=== PATIENT | female | born 1975 | race Caucasian/White ===

== ENCOUNTER 2018-11-29 14:17 | Outpatient (CLI) | payer MEDICAID, SELFPAY ==
[2018-11-30 13:29] LABS: Prolactin 67.6 ng/ml
== END 2018-11-29 14:37 ==
PROVIDERS: PCP Internal Medicine; Visit Provider Nurse Practitioner Family
DX: F10.99 Alcohol use, unspecified with unspecified alcohol-induced disorder (principal); Z79.899 Other long term (current) drug therapy; F33.2 Major depressive disorder, recurrent severe without psychotic features
CPT/HCPCS: 36415; 84146

== ENCOUNTER 2019-01-28 09:00 | Outpatient (CLI) | payer MEDICAID, SELFPAY ==
--- NOTE | 2019-01-28 16:09 | DI.US_ITS ---
SYMPTOM/DIAGNOSIS: PALPABLE MASS, ROUND QUARTER SIZE, DEFINED MARGINS, RT INNER UPPER THIGH.R 22.40 RIGHT UPPER THIGH SOFT TISSUE ULTRASOUND: Soft tissue evaluation of the right upper thigh was performed in the area of palpable abnormality in the upper medial thigh. There is a 0.7 by 0.8 by 1.3 cm., echogenic solid mass present. There is a question of some internal blood flow versus motion artifact. There is a 0.3 by 0.2 by 0.3 cm. simple cyst in the upper medial thigh inferior to the solid echogenic mass. IMPRESSION: 1. 1.3 cm. solid echogenic, round subcutaneous mass in the upper thigh. Sonographically this may represent benign lesion such as a lipoma. Follow up as clinically appropriate. 2. 0.3 cm. subcutaneous cyst in the right upper medial thigh.
== END 2019-01-28 09:20 ==
PROVIDERS: PCP Internal Medicine; Visit Provider Nurse Practitioner Adult Health
DX: R22.41 Localized swelling, mass and lump, right lower limb (principal); M79.89 Other specified soft tissue disorders; L72.8 Other follicular cysts of the skin and subcutaneous tissue; D17.39 Benign lipomatous neoplasm of skin and subcutaneous tissue of other sites
CPT/HCPCS: 76881

== ENCOUNTER 2019-03-05 09:26 | Outpatient (CLI) | payer MEDICAID, SELFPAY ==
[2019-03-05 11:20] LABS: ALT 65 U/L (12-78); AST 37 U/L (15-37); Albumin 3.7 g/dL (3.4-5.0); Alkaline Phosphatase 89 U/L (46-116); Anion Gap 8.8 mmol/L (3-11); BUN 14 mg/dL (7-18); Bilirubin, Total 0.3 mg/dL (0.2-1.0); CO2 27.2 mmol/L (21.0-32.0); CREATININE 0.75 mg/dL (0.55-1.02); Calcium 9.1 mg/dL (8.5-10.1); Chloride 102 mmol/L (98-107); Glucose 94 mg/dL (70-100); Potassium 4.6 mmol/L (3.5-5.1); Sodium 138 mmol/L (136-145); TSH 3.56 uIU/mL (0.358-3.74)
[2019-03-05 11:32] LABS: Cholesterol 259 mg/dL (50-200); HDL Cholesterol 56 mg/dL (40-60); LDL CHOLESTEROL 171 mg/dL (<100); Triglyceride 210 mg/dL (30-150)
[2019-03-10 17:29] LABS: T3, Total 123 ng/dl (97-169)
== END 2019-03-05 09:46 ==
PROVIDERS: PCP Nurse Practitioner Family; Visit Provider Nurse Practitioner Family
DX: F33.3 Major depressive disorder, recurrent, severe with psychotic symptoms (principal); Z79.899 Other long term (current) drug therapy; R63.5 Abnormal weight gain; E04.9 Nontoxic goiter, unspecified; M79.9 Soft tissue disorder, unspecified
CPT/HCPCS: 36415; 80053; 80061; 83721; 84439; 84443

== ENCOUNTER 2019-03-05 10:19 | Day surgery (SDC) | payer MEDICAID, SELFPAY ==
[2019-03-05 11:02] VITALS: BP 130/61; PULSE 69; RESP 16; TEMP 36.2; O2SAT 99
[2019-03-05] MEDS: Lidocaine 1% Multi-Dose 50 ML VIAL (13:43)
--- NOTE | 2019-03-05 13:47 | SOFT_PTH ---
PATIENT: Esha Gomez LOC: [facility] U#:[id number] AGE/SX: 44/F ROOM: RE03/05/[address]: Keila Dunn : 1975 BED: DIS: 03/05/2019 SPEC #: [id number] RECD: 03/05/19 17:16 STATUS: KAILEY REQ #: [id number] NATHANIEL: 03/05/19 13:[address]: Keila Dunn DEPT: Surgical Specimen RECD BY: Ly Hyde ENTERED: 03/05/19 17:17 SP TYPE: SOFT OTHR DR: Linda Dietrich Tissues: 1 - SOFT TISSUE-CYST(NOT LIPOMA) Procedures: GROSS AND MICRO LEVEL 4 Comments: [id number]
--- NOTE | 2019-03-05 14:09 | DSE_ITS ---
Date of service: 03/05/19 Time of Service: 14:08 DS: Diagnosis Discharge Diagnosis (1) Soft tissue lesion: Status: Acute Discharge Plan Disposition Patient Disposition: HOME Condition: Good Discharge Details Reason For Visit: lesion removal Attending Provider: Keila Dunn Primary Care Provider: Linda Dietrich Home Meds and New Rx's Prescriptions: New ibuprofen 800 mg tablet 800 mg PO TID PRN (Reason: pain) Qty: 30 RF: 0 Continued sertraline 100 mg tablet 150 mg PO DAILY RF: 0 propranolol 10 MG tablet 10 mg PO DAILY RF: 0 lorazepam [Ativan] 0.5 mg Tablet 0.5 mg PO PRNRF: 0 Vraylar 1.5 mg Capsule 1.5 mg PO HS RF: 0 Discontinued ibuprofen [Advil] 200 MG tablet 1 tab PO PRN PRNRF: 0 Discharge Instructions Additional Instructions: Caring for Your Incision You?ll need to help care for your incision after surgery and certain medical procedures. To close an incision, your healthcare provider used stitches (sutures), special strips of surgical tape called Steri-Strips, surgical chata, or surgical skin glue. Follow the tips on this sheet to help stop bleeding, speed healing, and prevent infection of your incision. Pain Control Use ice! Ice keeps the swelling down and swelling is what causes pain. Never apply ice directly to the skin. Wrap it in a towel or cloth. Apply ice 20 minutes on and 20 minutes off for pain control. Use as needed. Take tylenol 325 mg by mouth with food every 4 hours as needed for pain. Or ibuprofen 400 mg by mouth with food every 4 hours as needed for pain. Do not take tylenol if you have a history of heavy drinking , hepatits C or liver problems. Do not take ibuprofen if you have a history of stomach ulcers/problems, bleeding problem or kidney issues. Types of incision closures ? Surgical stitches (sutures) are placed by sewing the edges of an incision together with surgical thread. Sutures are either absorbable or non-absorbable. Absorbable sutures break down in the body over time. Non-absorbable sutures need to be removed. ? Home care ? Always wash your hands before touching your incision. ? Keep the incision clean, dry, and out of water, keep the incision out of water. ? Do not to pick at the scabs. Scabs help protect the wound. ? You can take a shower in 24 hours and wash the incision with soap and water. Pat dry/don?t scrub. It?s OK to wash around the incision. But don?t spray water directly on it. ? Pat stitches dry if they get wet. Don't rub. ? Check the incision site daily for pain, redness, drainage, swelling, or separation of the incision edges. ? If there is a bandage (dressing) over the incision, change this every 24 hours as instructed by your provider. Using clean hands change the dressing as directed by your healthcare provider. Always wash your hands before changing your dressing. ? Make sure any clothing that touches the incision is loose-fitting. This will prevent rubbing. If the incision is on the head, keep your child from wearing caps or other head coverings. These may rub against the incision. ? Try to avoid from rough play, contact sports, or physical activities for two weeks. This can put you at risk of opening the incision. ? Make sure you avoid doing things that could cause dirt or sweat to get in or on the incision. As your incision heals, the skin may appear pink or red. It may also feel slightly bumpy or raised. This is called a healing ridge. Over time, the color should fade and the raised skin will become less noticeable. Care for specific closures : ? Sutures or chata. Once you no longer need to keep these dry, clean the incision or wound daily, generally after the first 24 hours. First remove the bandage using clean hands. Then wash the area gently with soap and warm water. Use a wet cotton swab to loosen and remove any blood or crust that forms. After cleaning, put a thin layer of antibiotic ointment on. Then put on a new bandage. Follow-up care Tyler or sutures generally need to be removed in 7-10 days. 5 days for the face. Be sure to return for suture or staple removal as directed. If dissolving stitches were used in your mouth, these will not need to be removed. They should fall out or dissolve on their own. If tape closures were used, remove them yourself when your healthcare provider tells you to if they have not fallen off on their own. When to seek medical care Call your healthcare provider right away if you have any of these: ? More pain, redness, swelling, bleeding, or foul-smelling discharge around the incision area ? Fever of 101?F (38.3?C) or higher, or as directed by your child's healthcare provider ? Shaking chills ? Vomiting or nausea that doesn?t go away ? Numbness, coldness, or tingling around the incision area, or changes in skin color ? Opening of the sutures or wound Stitches or chata come apart or fall out or surgical tape falls off before 7 days, or as directed by your healthcare provider Stand Alone Forms: Esperanza Seaman (DSU) Activity:: Activity as Tolerated Remove Dressings/Wound Care:: 24 hours Shower/Bathe:: 24 hours Diet:: As Tolerated Discharge Orders Discharge Orders: Discharge Order (Routine); Ordered 03/05/19 Ordered By: Keila Dunn Discharge Data Discharge Date/Time-TO BE ENTERED AT DEPARTURE: 03/05/19 14:31 DS: Data Vitals/I&O Vitals and I&O: Vital Signs Temperature 36.2 C L 03/05/19 11:02 Pulse 69 03/05/19 11:02 Pulse Rhythm Irregular 03/05/19 11:02 Respiratory Rate 16 03/05/19 11:02 Respiratory Depth Normal 03/05/19 11:02 Blood Pressure 130/61 03/05/19 11:02 Pulse Oximetry 99 03/05/19 11:02 Oxygen Delivery Method Room Air 03/05/19 11:02 Oxygen Flow Rate 0 03/05/19 11:02 Pain Level 0 03/05/19 11:02 Intake & Output 03/04/19 03/05/19 03/05/19 23:59 11:59 23:59 Weight 101.8 kg [facility] Medical History Soft tissue lesion (Acute) External hemorrhoids without complication (Acute 12/25/13) Irregular periods (Acute 10/24/12) ALEXANDER III (vulvar intraepithelial neoplasia III) (Acute 12/25/13) Foot pain, left (Acute) Skin lesion of right leg (Acute) Abnormal Pap History Depression Schizoaffective disorder Seratonin Syndrome ALEXANDER Grade 3 Surgical History Bunionectomy R Cervical Procedure Dental implant R labia majora ALEXANDER Grade 3 excision Tonsillectomy Wide local excision of ALEXANDER III Social History Smoking/Tobacco Use Status: Current-Occasional Tobacco Type: cigarettes Drug use: Rarely Substance use type: marijuana Details: alcohol: t-1, couple beers Do you feel safe at home: Yes Do you feel safe in your relationship?: Yes
--- NOTE | 2019-03-06 07:42 | ROE_ITS ---
REPORT OF OPERATIVE PROCEDURE DATE OF PROCEDURE March 05, 2019 PREOPERATIVE DIAGNOSIS Soft tissue lesion right inner upper thigh. POSTOPERATIVE DIAGNOSIS Soft tissue lesion right inner upper thigh. PROCEDURE Excision Soft tissue lesion right inner upper thigh. Lesion is 0.5 cm in size. SURGEON Keila Dunn D.O. ANESTHESIA Local ESTIMATED BLOOD LOSS Less than 2 cc COMPLICATIONS The patient tolerated the procedure well without complications. INDICATIONS The patient is a 44-year-old female who was here today for lesion removal. The reason for removal secondary to pain. Informed consent was obtained. Explained the risks and benefits of the procedure including, not limited to bleeding, infection, scarring blood loss, recurrence, the need for excision of more tissue. The patient was marked in Preop. DESCRIPTION OF PROCEDURE The patient was brought back to the Operative Suite. Timeout is performed. The patient was prepped and draped in a sterile fashion using ChloraPrep scrub solution. The area was infiltrated with 20 cc of mixed 1% lidocaine with epi and 0.25% Marcaine A 0.5-cm incision was made over the skin lesion with the #10-blade. The lesion was then dissected out. It appeared to be fatty necrosis. It was irrigated and pressure was held. There was no bleeding noted. It was closed with three stitches of #3-0 Nylon and a compression dressing was applied. The patient tolerated the procedure without complication and she was transferred to Recovery Room in stable condition. the lesion located b/l this on US was not palpated at time of removal of the first lesions. I think it was this upper lesion that was causing her pain. CC: Linda Dietrich M.D.
== END 2019-03-05 14:31 | disposition home or self-care (01) ==
PROVIDERS: PCP Family Medicine; Visit Provider Surgery
PROC: (CPT 11400; principal; 2019-03-05 11:30)
DX: M79.651 Pain in right thigh (principal); D17.23 Benign lipomatous neoplasm of skin and subcutaneous tissue of right leg; F33.3 Major depressive disorder, recurrent, severe with psychotic symptoms; Z79.899 Other long term (current) drug therapy; R63.5 Abnormal weight gain; E04.9 Nontoxic goiter, unspecified
CPT/HCPCS: 11400; 36415; 80053; 80061; 83721; 88305; NC; 84439; 84443; 84480; 88304

== ENCOUNTER 2019-07-15 09:18 | Emergency (ER) | payer MEDICAID, SELFPAY ==
[2019-07-15] VITALS (14 sets, daily range): BP systolic 131–153; BP diastolic 81–92; PULSE 77–92; RESP 9–24; TEMP 36–36.9; O2SAT 95–98
--- NOTE | 2019-07-15 09:27 | W.ED.GENAD ---
Discharge Plan Disposition Patient Disposition: HOME Condition: Improving Discharge Details Chief Complaint: Chest Pain Clinical Impression: Gastritis Primary Care Provider: Linda Dietrich ED Provider: Haresh Viveros Home Meds and New Rx's Prescriptions: New pantoprazole [Protonix] 20 mg tablet,delayed release (DR/EC) 20 mg PO DAILY Qty: 14 RF: 0 sucralfate [Carafate] 100 mg/mL suspension 10 ml PO TID Qty: 420 RF: 1 Continued sertraline 100 mg tablet 150 mg PO DAILY RF: 0 propranolol 10 MG tablet 10 mg PO DAILY RF: 0 Vraylar 1.5 mg Capsule 1.5 mg PO HS RF: 0 ibuprofen 800 mg tablet 800 mg PO TID PRN (Reason: pain) Qty: 30 RF: 0 Discharge Instructions Instructions: Gastritis (ED) Additional Instructions: Avoid spicy, fatty, fried foods. Minimize eating 2 to 3 hours prior to bedtime. Take medications as prescribed. Return for any acute concern. Follow-up with primary doctor if not improving in 5 to 7 days time. Medical Decision Making 44-year-old female presents from home complaining of 3 days of left-sided chest and abdomen discomfort that is worsened with eating and began after eating a greasy sandwich. She is anxious as her father of an GA 20 years ago. She has a blood pressure 153/92, otherwise normal vital signs. She is minimally tender left upper quadrant on exam. Differential diagnosis includes gastritis, GERD, must exclude ACS. Patient given GI cocktail, PPI, referred for laboratory testing and chest x-ray. She is improved with PPI and GI cocktail. Pain after 2 days of persistent discomfort is improving. Her troponin is negative and do not feel given the duration of the discomfort that she requires repeat troponin. Chest x-ray was unremarkable. We will place on Carafate and PPI for 2 weeks. She understands homecare, dietary precautions, as well as follow-up/return instructions. She is stable and improved. Lab Data Lab results reviewed: Yes I reviewed the patient's lab results. Labs: Laboratory Results - last 24 hr 07/15/19 07/15/19 09:30 09:30 WBC 8.49 RBC 4.22 Hgb 14.7 Hct 42.0 MCV 99.5 H MCH 34.8 H MCHC 35.0 RDW 13.3 Plt Count 266 MPV 8.6 Immature Gran % 0.4 Neutrophils % 68.8 Lymphocytes % 20.1 Monocytes % 7.7 Eosinophils % 2.8 Basophils % 0.2 Absolute Neutrophils 5.84 Absolute Lymphocytes 1.71 Absolute Monocytes 0.65 Absolute Eosinophils 0.24 Absolute Basophils 0.02 Sodium 140 Potassium 4.1 Chloride 105 Carbon Dioxide 24.7 Anion Gap 10.3 BUN 8 Creatinine 0.81 Estimated GFR/1.73 m2 >= 60.00 Glucose 106 H Calcium 8.6 Magnesium 1.9 Total Bilirubin 0.4 AST 40 H ALT 65 H Alkaline Phosphatase 96 Troponin I < 0.05 Total Protein 7.3 Albumin 3.6 ECG Data Attestation: I personally reviewed and interpreted this ECG (s) as follows: Interpretation: Normal sinus rhythm with a rate of 90, the QRS is narrow, there is no ST segment elevation. HPI General Mode of arrival: ambulatory. Date/Time Provider Initiated Documentation: 07/15/19 09:20. Limitations to Documentation: no limitations. Information obtained by: patient. History of Present Illness 44 year old F presents to the emergency department with the chief complaint of Aching left chest and abdomen discomfort for 3 days, Quality is described as dull and constant, and is localized to the chest, abdomen and left. Patient started experiencing this hour(s) and it has been constant. Eating worsens symptoms . Patient notes no other symptoms.. Related Data Home Medications Medication Instructions Recorded Confirmed propranolol 10 mg PO DAILY 01/01/15 07/15/19 sertraline 100 mg tablet 150 mg PO DAILY tab 02/18/19 07/15/19 Vraylar 1.5 mg PO HS 03/05/19 07/15/19 ibuprofen 800 mg PO TID PRN #30 tab 03/05/19 07/15/19 pantoprazole [Protonix] 20 mg PO DAILY #14 tab 07/15/19 sucralfate [Carafate] 10 ml PO TID #420 ml 07/15/19 Previous Rx's Medication Instructions Recorded ibuprofen 800 mg PO TID PRN #30 tab 03/05/19 pantoprazole [Protonix] 20 mg PO DAILY #14 tab 07/15/19 sucralfate [Carafate] 10 ml PO TID #420 ml 07/15/19 Allergies Allergy/AdvReac Type Severity Reaction Status Date / Time acetaminophen AdvReac LIGHTHEADED Verified 03/14/19 09:11 General Stated Complaint: Chest Pain MILA: 2 Review of Systems Review of Systems Narrative: 6 systems reviewed and otherwise negative. No leg pain or swelling, no prolonged immobilization, no pain with breathing. No rash. She does report hand numbness in the mornings that resolves with position. 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 Hospitalized with psychosis at [facility] Psych x 3 weeks Skin lesion of right leg (Acute) [facility], right inner thigh, sonographically may represent a benign lesion.mg Soft tissue lesion (Acute) ALEXANDER Grade 3 2012 excision ALEXANDER III (vulvar intraepithelial neoplasia III) (Acute 12/25/13) with excision 2014 with excision Surgical History Bunionectomy R 1979 Cervical Procedure Colposcopy with Bx...records from [facility] pending Dental implant 1990 H/O local excision of skin lesion (Resolved) 03/05/19 Dr Keila Dunn, right thigh skin lesion excision, angiolipoma. R labia majora ALEXANDER Grade 3 excision 2012 Tonsillectomy Wide local excision of ALEXANDER III 2014 Family History Father Myocardial infarction Other Diabetes Heart disease Personal history of malignant neoplasm Social History Smoking/Tobacco Use Status: Current-Occasional Tobacco Type: cigarettes Drug use: Rarely Substance use type: marijuana Details: alcohol: t-1, couple beers Do you feel safe at home: Yes Do you feel safe in your relationship?: Yes Exam Narrative Exam Narrative: GEN: awake, alert, oriented 3. Pleasant, well groomed, interactive. HEAD: Normocephalic, atraumatic ENT: Mucous membranes moist, oropharynx unremarkable, External ear exam unremarkable EYES: PERRL, EOMI NECK: Full ROM, no NUBIA, no menigismus CHEST/RESP: Nontender, clear to auscultation bilateral, no wheeze/rhonchi/rales CARDIOVASCULAR: RRR, no murmur, rub pamella. 2+ Rad pulse bilateral ABDOMEN: Soft, minimal tenderness left upper quadrant without rebound or guarding, no mass. +Bowel sounds EXT: Full ROM, no edema, no rash Neuro: Grossly normal neurologic exam, conversant, interactive. Psych: Speech fluent, thoughts congruent, affect anxious Course Vital Signs Vital signs: Vital Signs Temperature 36 C L 07/15/19 09:24 Pulse 90 07/15/19 09:24 Respiratory Rate 18 07/15/19 09:24 Blood Pressure 153/92 H 07/15/19 09:24 Temperature 36 C L 07/15/19 09:24 Temperature Source Skin 07/15/19 09:24 Pulse 90 07/15/19 09:24 Respiratory Rate 18 07/15/19 09:24 Blood Pressure 153/92 H 07/15/19 09:24 Blood Pressure Position Sitting 07/15/19 09:24 Oxygen Delivery Method Room Air 07/15/19 09:24 Oxygen Flow Rate 0 07/15/19 09:24 Pain Level 3 07/15/19 09:24
--- NOTE | 2019-07-15 09:37 | DI.RAD_ITS ---
EXAM: XR CHEST 2V PA LATERAL INDICATION: Left chest discomfort. COMPARISON: RIGHT RIBS TO INCLUDE CXR from 11/03/2015 TECHNIQUE: 2D digital imaging was performed. FINDINGS: The lungs are well expanded and free of infiltrate. There is no evidence of a pleural effusion. Hear t is not enlarged. The hilar structures, mediastinum and tracheal air column are intact. IMPRESSION: No evidence of acute cardiopulmonary disease.
[2019-07-15] MEDS: Pantoprazole 40 MG VIAL IVP (09:45)
[2019-07-15] MEDS: Normal Saline Flush 10 ML SYR IVP (09:50)
[2019-07-15 09:52] LABS: Abs Immature Grans 0.03 k/cumm (0.0-0.09); Absolute Basophil Count 0.02 k/cumm (0.0-0.2); Absolute Eosinophil Count 0.24 k/cumm (0.0-0.7); Absolute Lymphocyte Count 1.71 k/cumm (1.2-3.4); Absolute Monocyte Count 0.65 k/cumm (0.11-0.7); Absolute Neutrophil Count 5.84 k/cumm (1.2-6.7); Basophils % 0.2; Eosinophils % 2.8; HGB 14.7 g/dL (12.0-15.5); Immature Grans % 0.4; Lymphocytes % 20.1; Mean Corpuscular Hemoglobin 34.8 pg (27.0-33.0); Mean Corpuscular Volume 99.5 fL (80-95); Mean Platelet Volume 8.6 fL (8.0-11.0); Monocytes % 7.7; Neutrophils % 68.8; Platelet Count 266 x1000/uL (130-400); RBC 4.22 m/cumm (4.00-5.20); RBC Distribution Width 13.3 % (11.7-14.6); White Blood Cell Count 8.49 k/cumm (4.4-10.8)
[2019-07-15 10:21] LABS: ALT 65 U/L (14-59); AST 40 U/L (15-37); Albumin 3.6 g/dL (3.4-5.0); Alkaline Phosphatase 96 U/L (46-116); Anion Gap 10.3 mmol/L (3-11); BUN 8 mg/dL (7-18); Bilirubin, Total 0.4 mg/dL (0.2-1.0); CO2 24.7 mmol/L (21.0-32.0); CREATININE 0.81 mg/dL (0.55-1.02); Calcium 8.6 mg/dL (8.5-10.1); Chloride 105 mmol/L (98-107); Glucose 106 mg/dL (70-100); Magnesium 1.9 mg/dL (1.8-2.4); Potassium 4.1 mmol/L (3.5-5.1); Sodium 140 mmol/L (136-145); Total Protein 7.3 g/dL (6.4-8.2)
[2019-07-15 10:22] LABS: Troponin I < 0.05 ng/mL (0.00-0.06)
== END 2019-07-15 11:05 | disposition home or self-care (01) ==
PROVIDERS: Emergency Provider Emergency Medicine; PCP Nurse Practitioner Family
DX: K29.00 Acute gastritis without bleeding (principal); F41.9 Anxiety disorder, unspecified
CPT/HCPCS: 36415; 80053; 93005; 96374; 99285; 71046; 83735; 84484; 85025; 93010

== ENCOUNTER 2019-10-18 10:40 | Outpatient (CLI) | payer MEDICAID, SELFPAY ==
[2019-10-18 11:15] LABS: Abs Immature Grans 0.02 k/cumm (0.0-0.09); Absolute Basophil Count 0.02 k/cumm (0.0-0.2); Absolute Eosinophil Count 0.25 k/cumm (0.0-0.7); Absolute Lymphocyte Count 1.34 k/cumm (1.2-3.4); Absolute Monocyte Count 0.46 k/cumm (0.11-0.7); Absolute Neutrophil Count 4.79 k/cumm (1.2-6.7); Basophils % 0.3; Eosinophils % 3.6; HGB 15.2 g/dL (12.0-15.5); Immature Grans % 0.3; Lymphocytes % 19.5; Mean Corp. HGB Concentration 33.8 g/dL (32.0-36.0); Mean Corpuscular Hemoglobin 34.8 pg (27.0-33.0); Mean Platelet Volume 8.5 fL (8.0-11.0); Monocytes % 6.7; Neutrophils % 69.6; Platelet Count 282 x1000/uL (130-400); RBC 4.37 m/cumm (4.00-5.20); RBC Distribution Width 13.3 % (11.7-14.6); White Blood Cell Count 6.88 k/cumm (4.4-10.8)
[2019-10-18 12:11] LABS: ALT 70 U/L (14-59); AST 45 U/L (15-37); Albumin 3.8 g/dL (3.4-5.0); Alkaline Phosphatase 115 U/L (46-116); Anion Gap 8.3 mmol/L (3-11); BUN 8 mg/dL (7-18); Bilirubin, Total 0.5 mg/dL (0.2-1.0); CO2 27.7 mmol/L (21.0-32.0); CREATININE 0.77 mg/dL (0.55-1.02); Calcium 9.1 mg/dL (8.5-10.1); Calculated LDL 166 mg/dL; Chloride 102 mmol/L (98-107); Cholesterol 270 mg/dL (<200); Glucose 97 mg/dL (74-106); HDL Cholesterol 46 mg/dL (40-60); Potassium 4.6 mmol/L (3.5-5.1); Sodium 138 mmol/L (136-145); TSH (W/Ref FT4) 3.49 uIU/mL (0.36-3.74); Total Protein 7.2 g/dL (6.4-8.2); Triglyceride 292 mg/dL (<150)
== END 2019-10-18 11:00 ==
PROVIDERS: PCP Nurse Practitioner Family; Visit Provider Nurse Practitioner Family
DX: F33.3 Major depressive disorder, recurrent, severe with psychotic symptoms (principal); Z79.899 Other long term (current) drug therapy
CPT/HCPCS: 36415; 80053; 80061; 84443; 85025

== ENCOUNTER 2019-12-04 11:15 | Outpatient (REF) | payer MEDICAID, SELFPAY ==
[2019-12-04 20:00] LABS: C-Reactive Protein 1.47 mg/dL (0.0-0.3)
[2019-12-04 20:07] LABS: GGT 183 U/L (5-55)
[2019-12-04 20:30] LABS: ESR 23 mm/hr (0-20)
[2019-12-06 09:23] LABS: HBs Antibody, Quant 24.4 mIU/mL (See Note); Hepatitis B Surface Ab Positive (See Note)
[2019-12-06 11:43] LABS: Hepatitis C Ab w Rflx HCV PCR Negative (Negative)
[2019-12-06 15:05] LABS: IgA 198 mg/dL (85-499); Tissue Transglutaminase IgA <1.2 U/mL (<4.0)
[2019-12-06 15:37] LABS: ANA Interpretation Positive (Negative); ANA Titer Pattern 1:80 Speckled
== END 2019-12-04 11:35 ==
LOC: NCHCN 11:15
PROVIDERS: PCP Nurse Practitioner Family; Visit Provider Nurse Practitioner
DX: R11.2 Nausea with vomiting, unspecified (principal); K58.9 Irritable bowel syndrome, unspecified; R79.89 Other specified abnormal findings of blood chemistry; Z11.59 Encounter for screening for other viral diseases
CPT/HCPCS: 82784; 83516; 85652; 86706; 86803; 82977; 86038; 86140

== ENCOUNTER 2019-12-19 02:02 | Outpatient (CLI) | payer MEDICAID, SELFPAY ==
--- NOTE | 2019-12-19 07:34 | DI.US_ITS ---
EXAM: US ABDOMEN CLINICAL HISTORY: ELEVATED LFT'S, R79.89, NAUSEA, VOMITING, R11.2, ? GB DISEASE OR FATTY TECHNIQUE: Ultrasound performed using standard protocol. COMPARISON: No exams were available for comparison FINDINGS: The liver is normal in size but shows mildly increased echogenicity consistent with fatty infiltratio n. The posterior portions of the liver are not well seen. There is a single mobile stone in the gal lbladder. There is no gallbladder wall thickening, pericholecystic fluid or biliary dilatation. The spleen, pancreas, kidneys and aorta are unremarkable. IMPRESSION: Fatty liver. Cholelithiasis. DATA REPOSITORY:
== END 2019-12-19 02:22 ==
PROVIDERS: PCP Nurse Practitioner Family; Visit Provider Nurse Practitioner
DX: R11.2 Nausea with vomiting, unspecified (principal); R79.89 Other specified abnormal findings of blood chemistry; K76.0 Fatty (change of) liver, not elsewhere classified; K80.20 Calculus of gallbladder without cholecystitis without obstruction
CPT/HCPCS: 76700

== ENCOUNTER 2021-01-26 16:53 | Outpatient (REF) | payer MEDICAID, SELFPAY ==
[2021-01-26 20:25] LABS: HCT 44.1 % (36.0-46.0); HGB 14.6 g/dL (11.2-15.7); MCH 34.2 pg (27.0-33.0); MCHC 33.1 % (32.0-36.0); MCV 103.3 fL (80-95); MPV 8.9 fL (8.0-11.0); Platelet Count 252 10^3/uL (130-400); RBC 4.27 10^6/uL (3.93-5.22); RDW 13.2 % (11.7-14.6); RDW-SD 50.5 fL; WBC 9.47 10^3/uL (4.4-10.8)
[2021-01-26 20:35] LABS: ALT 70 U/L (14-59); AST 42 U/L (15-37); Albumin 3.6 g/dL (3.4-5.0); Alkaline Phosphatase 90 U/L (46-116); Anion Gap 8.1 mmol/L (3-11); BUN 12 mg/dL (7-18); Bilirubin, Total 0.3 mg/dL (0.2-1.0); CO2 28.9 mmol/L (21.0-32.0); CREATININE 0.9 mg/dL (0.55-1.02); Calcium 9.5 mg/dL (8.5-10.1); Chloride 104 mmol/L (98-107); ESR 12 mm//hr (0-20); Glucose 104 mg/dL (74-106); Potassium 3.6 mmol/L (3.5-5.1); Sodium 141 mmol/L (136-145); Total Protein 6.6 g/dL (6.4-8.2)
== END 2021-01-26 16:54 | disposition home or self-care (01) ==
LOC: NCHCN 16:53
PROVIDERS: PCP Nurse Practitioner Family; Visit Provider Family Medicine
DX: R79.89 Other specified abnormal findings of blood chemistry (principal); R06.02 Shortness of breath
CPT/HCPCS: 80053; 85027; 85652

== ENCOUNTER 2021-01-27 17:57 | Outpatient (CLI) | payer MEDICAID, SELFPAY ==
--- NOTE | 2021-01-27 | DI.RAD_ITS ---
EXAM: XR CHEST 2V PA LATERAL CLINICAL HISTORY: SOB, R06.02, MAX POSITIVE, R79.89 TECHNIQUE: 2D digital imaging was performed. COMPARISON: CR XR CHEST 2V PA LATERAL from 07/15/2019 FINDINGS: MEDIASTINUM: Normal. HEART: Normal. PULMONARY VASCULATURE: Normal. LUNGS: Clear. PLEURAL SPACE: No pleural effusion or pneumothorax. BONE:Normal. IMPRESSION: No acute pulmonary findings. DATA REPOSITORY: RADIATION DOSE DELIVERED:
== END 2021-01-27 18:17 ==
PROVIDERS: PCP Nurse Practitioner Family; Visit Provider Family Medicine
DX: R06.02 Shortness of breath (principal); R79.89 Other specified abnormal findings of blood chemistry
CPT/HCPCS: 71046

== ENCOUNTER 2021-04-07 16:50 | Outpatient (REF) | payer MEDICAID, SELFPAY ==
[2021-04-07 14:07] LABS: ALT 98 U/L (14-59); AST 57 U/L (15-37); Albumin 3.7 g/dL (3.4-5.0); Alkaline Phosphatase 99 U/L (46-116); Bilirubin, Direct 0.1 mg/dL (0.0-0.2); Bilirubin, Total 0.4 mg/dL (0.2-1.0)
== END 2021-04-07 16:51 | disposition home or self-care (01) ==
LOC: NCHCN 16:50
PROVIDERS: PCP Nurse Practitioner Family; Visit Provider Physician Assistant
DX: K75.81 Nonalcoholic steatohepatitis (NASH) (principal)
CPT/HCPCS: 80076

== ENCOUNTER 2021-04-23 02:39 | Outpatient (CLI) | payer MEDICAID, SELFPAY ==
--- NOTE | 2021-04-23 | DI.MAMMO_ITS ---
Exam(s) MAMMO SCREENING EXAM: MAMMO SCREENING CLINICAL HISTORY: SCREENING Z12.31 TECHNIQUE: Mammograms were interpreted according to the usual protocol including computer analysis w [employer] CAD system, tomosynthesis and C-view imaging. COMPARISON: FINDINGS: The breasts are heterogeneously dense. No dominant mass or clumped microcalcification is identified in either breast. The current examination is compared with previous examinations including June 11 and there is question of increased prominence of a focal area of asymmetric density with a vaguely nodular appearance projected in the central superior portion of the right breast on MLO view only. Additional mammographic views of the right breast are requested to include an MLO spot compression vi ew. No other significant change seen. IMPRESSION: Additional mammographic views of the right breast requested as described above. Breast ultrasound ma y be indicated as well depending on the results additional mammographic views. BI-RADS Category 0 - Assessment Incomplete: Need additional imaging evaluation Breast Density - Category C - Heterogeneously dense
== END 2021-04-23 02:59 ==
PROVIDERS: PCP Nurse Practitioner Family; Visit Provider Physician Assistant
DX: Z12.31 Encounter for screening mammogram for malignant neoplasm of breast (principal)
CPT/HCPCS: 77063; 77067

== ENCOUNTER 2021-05-14 04:31 | Outpatient (CLI) | payer MEDICAID, SELFPAY ==
--- NOTE | 2021-05-14 | DI.MAMMO_ITS ---
Exam(s) MG MAMMO SCREEN CALL BACK UNI US BREAST RT LIMITED EXAM: MG MAMMO SCREEN CALL BACK UNI CLINICAL HISTORY: F/U MAMMO, INCREASED PROMINENCE OF ASYMMETRIC DENSITY. TECHNIQUE: Craniocaudal and mediolateral oblique spot compression mammography views of the right cristino ast followed by Tomosynthesis and right breast ultrasound. COMPARISON: MG Diagnostic Right Mammo Spots from 03/13/2014 MG Diagnostic Right Mammo Spots from 03/13/2014 MG Diagnostic Right Mammo from 09/15/2014 MG Screening Bilat Mammo from 03/22/2016 MG Screening Bilat Mammo from 03/22/2016 MG R. Spot - Same Day from 03/25/2016 MG R. Spot - Same Day from 03/25/2016 US RIGHT BREAST ULTRASOUND from 03/25/2016 US RIGHT BREAST ULTRASOUND from 03/25/2016 MG Combo Unilateral Right from 04/11/2016 MG Combo Unilateral Right from 04/11/2016 MG Combo Bilateral from 06/22/2017 MG MG MAMMO SCREENING from 04/23/2021 MG MG MAMMO SCREENING from 04/23/2021 US US BREAST RT LIMITED from 05/14/2021 US US BREAST RT LIMITED from 05/14/2021 FINDINGS: Mammography/Tomosynthesis: Masses/Architectural Distortion: None seen. Microcalcifictions: No suspicious pleomorphic-type are seen. Skin Thickening/Nipple Retraction: None. Right breast US: Echotexture: Normal appearance of the glandular tissue. Shadowing: No suspicious foci. Cyst: 5 millimeter area of clustered microcysts in the 8 o'clock position of the lower outer quadrant , 5 cm from the nipple. Solid lesions: None seen. Ductal dilation: None. IMPRESSION: 1. No evidence of malignancy is noted. 2. Unless there is more urgent need, follow-up screening mammography is recommended, as per [place] [employer] guidelines. 3. The findings were discussed with the patient on the date of the examination. BI-RADS Category 2 - Benign Findings Breast Density - Category C - Heterogeneously dense A negative radiographic report should not delay biopsy if a dominant or clinically suspicious mass is present. Up to ten percent of cancers are not identified on mammography. A negative report may reinforce clinical impression. Adenosis and dense breasts may obscure an underlying neoplasm. False positive reports average 6 to 10%. Patient will receive a letter notifying them of these results.
== END 2021-05-14 04:51 ==
PROVIDERS: PCP Nurse Practitioner Family; Visit Provider Physician Assistant
DX: Z12.31 Encounter for screening mammogram for malignant neoplasm of breast (principal); N64.89 Other specified disorders of breast
CPT/HCPCS: 76642; 77063; 77067

== ENCOUNTER 2021-08-05 13:01 | Outpatient (REF) | payer MEDICAID, SELFPAY ==
[2021-08-07 14:03] LABS: COVID-19 RT-PCR UVMMC Result Negative (Negative)
== END 2021-08-05 13:02 | disposition home or self-care (01) ==
LOC: LBN 13:01
PROVIDERS: PCP Nurse Practitioner Family; Visit Provider Physician Assistant Medical
DX: Z20.822 Contact with and (suspected) exposure to COVID-19 (principal); J06.9 Acute upper respiratory infection, unspecified
CPT/HCPCS: U0003

== ENCOUNTER 2021-08-10 16:31 | Outpatient (REF) | payer MEDICAID, SELFPAY ==
[2021-08-12 18:23] LABS: COVID-19 RT-PCR UVMMC Result Negative (Negative)
== END 2021-08-10 16:32 | disposition home or self-care (01) ==
LOC: LBN 16:31
PROVIDERS: PCP Nurse Practitioner Family; Visit Provider Nurse Practitioner Family
DX: Z20.822 Contact with and (suspected) exposure to COVID-19 (principal); J06.9 Acute upper respiratory infection, unspecified
CPT/HCPCS: U0003

== ENCOUNTER 2022-02-17 18:23 | Outpatient (REF) | payer OTHER, MEDICAID, SELFPAY ==
[2022-02-17 15:28] LABS: ALT 38 U/L (14-59); AST 21 U/L (15-37); Albumin 3.9 g/dL (3.4-5.0); Alkaline Phosphatase 107 U/L (46-116); Anion Gap 8.3 mmol/L (3-11); BUN 15 mg/dL (7-18); Bilirubin, Total 0.5 mg/dL (0.2-1.0); CO2 28.7 mmol/L (21.0-32.0); CREATININE 0.8 mg/dL (0.55-1.02); Calcium 8.9 mg/dL (8.5-10.1); Calculated LDL 163 mg/dL (<100); Chloride 103 mmol/L (98-107); Cholesterol 285 mg/dL (<200); Glucose 103 mg/dL (74-106); HDL Cholesterol 49 mg/dL (40-60); Potassium 4.2 mmol/L (3.5-5.1); Sodium 140 mmol/L (136-145); Total Protein 6.9 g/dL (6.4-8.2); Triglyceride 367 mg/dL (<150)
== END 2022-02-17 18:24 | disposition home or self-care (01) ==
LOC: NCHCN 18:23
PROVIDERS: PCP Nurse Practitioner Family; Visit Provider Physician Assistant
DX: I10 Essential (primary) hypertension (principal); E78.5 Hyperlipidemia, unspecified
CPT/HCPCS: 80053; 80061

== ENCOUNTER → 2022-04-26 01:40 | Outpatient (CLI) | payer MEDICAID, SELFPAY ==
--- NOTE | 2022-04-26 | DI.MAMMO_ITS ---
Exam(s) MAMMO SCREENING EXAM: MAMMO SCREENING CLINICAL HISTORY: SCREENING, Z12.31. TECHNIQUE: Bilateral full field digital CC and MLO mammographic images were obtained with 3D tomosyn thesis and utilizing computer aided detection (CAD). COMPARISON: Prior mammograms were reviewed, the most recent being April 2021.. FINDINGS: There has been no significant change in the appearance and distribution of the fibroglandular tissue. No new masses nor malignant-appearing microcalcification groups. No new architectural distortion or skin thickening-retraction. IMPRESSION: No radiographic evidence of malignancy. BI-RADS Category 1 - Negative Breast Density - Category C - Heterogeneously dense Breast density Category C or D implies that the patient has dense breast tissue. Dense breast tissue can make it harder to find cancer on a mammogram. Dense breast tissue is also associated with an incr eased risk of breast cancer. This information about the result of the mammogram report was provided to the patient to raise their awareness. Use this report when you speak with the patient about their risks for breast cancer, which includes their family history. At that time, you may recommend additional screening tests (Ultrasoun d or MRI) as these tests may add significant information. A negative radiographic report should not delay biopsy if a dominant or clinically suspicious mass is present. Up to ten percent of cancers are not identified on mammography. A negative report may reinforce clinical impression. Adenosis and dense breasts may obscure an underlying neoplasm. False positive reports average 6 to 10%. Patient will receive a letter notifying them of these results.
== END ==
PROVIDERS: PCP Nurse Practitioner Family; Visit Provider Physician Assistant
DX: Z12.31 Encounter for screening mammogram for malignant neoplasm of breast (principal)
CPT/HCPCS: 77063; 77067

== ENCOUNTER 2023-03-03 10:19 | Outpatient (REF) | payer MEDICAID, SELFPAY ==
[2023-03-03 14:41] LABS: HCT 41.2 % (36.0-46.0); HGB 14.1 g/dL (11.2-15.7); MCH 34.7 pg (27.0-33.0); MCHC 34.2 % (32.0-36.0); MCV 102 fL (80-95); MPV 9.1 fL (8.0-11.0); Platelet Count 279 10^3/uL (130-400); RBC 4.06 10^6/uL (3.93-5.22); RDW 13.2 % (11.7-14.6)
[2023-03-03 15:13] LABS: ALT 21 U/L (14-59); AST 17 U/L (15-37); Albumin 3.9 g/dL (3.4-5.0); Alkaline Phosphatase 70 U/L (46-116); BUN 14 mg/dL (7-18); Bilirubin, Total 0.3 mg/dL (0.2-1.0); CREATININE 0.8 mg/dL (0.55-1.02); Calcium 9.1 mg/dL (8.5-10.1); Calculated LDL 204 mg/dL (<100); Chloride 102 mmol/L (98-107); Cholesterol 294 mg/dL (<200); Estimated GFR 90.27 (mL/min/1.73m2); Glucose 98 mg/dL (74-106); HDL Cholesterol 57 mg/dL (40-60); Potassium 4.1 mmol/L (3.5-5.1); Sodium 141 mmol/L (136-145); TSH 4.73 uIU/mL (0.36-3.74); Triglyceride 169 mg/dL (<150)
[2023-03-03 19:26] LABS: Hemoglobin A1C 5.2 % (<5.7)
[2023-03-03 19:48] LABS: FREE T4 0.89 ng/dL (0.76-1.46)
[2023-03-09 13:36] LABS: Methylphenidate 395 ng/mL (Cutoff: 10); Ritalinic Acid 16336 ng/mL (Cutoff: 50)
== END 2023-03-03 10:20 | disposition home or self-care (01) ==
LOC: NCHCN 10:19
PROVIDERS: Registered Nurse; PCP Physician Assistant; Visit Provider Physician Assistant
DX: Z13.1 Encounter for screening for diabetes mellitus (principal); E78.5 Hyperlipidemia, unspecified; R53.83 Other fatigue; Z51.81 Encounter for therapeutic drug level monitoring; Z79.899 Other long term (current) drug therapy; F41.8 Other specified anxiety disorders
CPT/HCPCS: 80053; 80061; 80360; 85027; 83036; 84439; 84443

== ENCOUNTER 2023-05-01 01:42 | Outpatient (CLI) | payer MEDICAID, SELFPAY ==
--- NOTE | 2023-05-01 | DI.MAMMO_ITS ---
Exam(s) MAMMO SCREENING EXAM: MAMMO SCREENING CLINICAL HISTORY: SCREENING FOR BREAST CANCER Z12.39. TECHNIQUE: Bilateral full field digital CC and MLO mammographic images were obtained with 3D tomosyn thesis and utilizing computer aided detection (CAD). COMPARISON: Prior mammograms dating back to 2013 were reviewed. FINDINGS: There has been no significant change in the appearance and distribution of the fibroglandular tissue. Asymmetric density posteriorly in the left breast seen on the MLO view is unchanged from 2014 and the refore benign. There are no new spiculated masses nor malignant appearing microcalcification groups. There is no significant architectural distortion nor skin thickening-retraction. IMPRESSION: No radiographic evidence of malignancy. BI-RADS Category 1 - Negative Breast Density - Category B - Scattered areas of fibroglandular density Breast density Category C or D implies that the patient has dense breast tissue. Dense breast tissue can make it harder to find cancer on a mammogram. Dense breast tissue is also associated with an incr eased risk of breast cancer. This information about the result of the mammogram report was provided to the patient to raise their awareness. Use this report when you speak with the patient about their risks for breast cancer, which includes their family history. At that time, you may recommend additional screening tests (Ultrasoun d or MRI) as these tests may add significant information. A negative radiographic report should not delay biopsy if a dominant or clinically suspicious mass is present. Up to ten percent of cancers are not identified on mammography. A negative report may reinforce clinical impression. Adenosis and dense breasts may obscure an underlying neoplasm. False positive reports average 6 to 10%. Patient will receive a letter notifying them of these results.
== END 2023-05-01 02:02 ==
LOC: DI 01:42
PROVIDERS: PCP Physician Assistant; Visit Provider Physician Assistant
DX: Z12.31 Encounter for screening mammogram for malignant neoplasm of breast (principal)
CPT/HCPCS: 77063; 77067

== ENCOUNTER 2024-06-17 17:53 | Outpatient (REF) | payer MEDICAID, SELFPAY ==
[2024-06-17 16:17] LABS: ALT 60 U/L (14-59); AST 43 U/L (15-37); Albumin 3.9 g/dL (3.4-5.0); Alkaline Phosphatase 98 U/L (46-116); BUN 12 mg/dL (7-18); Bilirubin, Total 0.61 mg/dL (0.2-1.0); CREATININE 0.7 mg/dL (0.55-1.02); Calcium 8.9 mg/dL (8.5-10.1); Calculated LDL 99 mg/dL (<100); Chloride 103 mmol/L (98-107); Cholesterol 216 mg/dL (<200); Glucose 107 mg/dL (74-106); HDL Cholesterol 61 mg/dL (40-60); Sodium 140 mmol/L (136-145); Total Protein 7.5 g/dL (6.4-8.2); Triglyceride 282 mg/dL (<150)
== END 2024-06-17 17:54 | disposition home or self-care (01) ==
LOC: NCHCN 17:53
PROVIDERS: PCP Physician Assistant; Visit Provider Physician Assistant
DX: E78.5 Hyperlipidemia, unspecified (principal)
CPT/HCPCS: 80053; 80061

== ENCOUNTER 2025-05-19 02:33 | Outpatient (CLI) | payer MEDICAID, SELFPAY ==
--- NOTE | 2025-05-19 | DI.MAMMO_ITS ---
Exam(s) MAMMO SCREENING EXAM: MAMMO SCREENING CLINICAL HISTORY: Screening, Z12.31. TECHNIQUE: Bilateral full field digital CC and MLO mammographic images were obtained with 3D tomosynthesis and utilizing computer aided detection (CAD). COMPARISON: Prior mammograms were reviewed. FINDINGS: There has been no significant change in the appearance and distribution of the fibroglandular tissue. Mild anterior density posteriorly in left breast is unchanged from prior mammograms There are no new spiculated masses nor new malignant appearing microcalcification groups. There is no significant architectural distortion nor skin thickening-retraction. IMPRESSION: Stable benign-appearing findings. No radiographic evidence of malignancy. BI-RADS Category 2 - Benign Findings Breast Density - Category B - There are scattered areas of fibroglandular density. Breast density Category C or D implies that the patient has dense breast tissue. Dense breast tissue can make it harder to find cancer on a mammogram. Dense breast tissue is also associated with an increased risk of breast cancer. This information about the result of the mammogram report was provided to the patient to raise their awareness. Use this report when you speak with the patient about their risks for breast cancer, which includes their family history. At that time, you may recommend additional screening tests (Ultrasound or MRI) as these tests may add significant information. A negative radiographic report should not delay biopsy if a dominant or clinically suspicious mass is present. Up to ten percent of cancers are not identified on mammography. A negative report may reinforce clinical impression. Adenosis and dense breasts may obscure an underlying neoplasm. False positive reports average 6 to 10%. Patient will receive a letter notifying them of these results.
== END 2025-05-19 02:53 ==
PROVIDERS: PCP Physician Assistant; Visit Provider Physician Assistant
DX: Z12.31 Encounter for screening mammogram for malignant neoplasm of breast (principal); R92.323 Mammographic fibroglandular density, bilateral breasts
CPT/HCPCS: 77063; 77067